=== PATIENT | male | born 1980 | race American Indian/Alaskan Native ===

== ENCOUNTER 2019-11-12 15:31 | Inpatient (IN) | payer OTHER ==
[~2019-11-12] VITALS: Ht 180.3 cm; Wt 98.9 kg
--- OUTSIDE RECORDS SUMMARY | ~2019-11-12 | XMS | Encounter Summary ---
Demographics + + + | Address | [address] [facility] [address] | | | [place] [address] | + + + | Home Phone | | + + + | Preferred Language | Unknown | + + + | Marital Status | | + + + | Alevism Affiliation | Unknown | + + + | Race | Unknown | + + + | Ethnic Group | Unknown | + + + Author + + + | Author | [facility] | | | and [place] | + + + | Organization | [facility] | | | and [place] | + + + | Address | Unknown | + + + | Phone | Unavailable | + + + Support + + + + + | Name | Relationship | Address | Phone | + + + + + | Annie Thomas | ECON | [place] | | | | | [address] | | + + + + + Care Team Providers + +------+ + | Care Sample Hand Name | Role | Phone | + +------+ + | No, Physician | PCP | Unavailable | + +------+ + Reason for Visit + + + | Reason | Comments | + + + | Eye Problem | | + + + Encounter Details +--------+ + + + + | Date | Type | Department | Care Team | Description | +--------+ + + + + | 03/29/ | Emergency | [facility] | Darron Krueger Rober, | Scleral injection | | 2019 | | MEDICAL CENTER | [address] | (Primary Dx); Acute | | | | EMERGENCY CENTER | [place] [address] | conjunctivitis of | | | | [address] | [phone] | both eyes, | | | | [place], [place] | | unspecified acute | | | | [address] | | conjunctivitis type | | | | [phone] | | | +--------+ + + + + Social History + +-------+ +--------+------+ | Tobacco Use | Types | Packs/Day | Years | Date | | | | | Used | | + +-------+ +--------+------+ | Never Smoker | | | | | + +-------+ +--------+------+ + +---+---+---+ | Smokeless Tobacco: | | | | | Never Used | | | | + +---+---+---+ + + +---------+ + | Alcohol Use | Drinks/Week | oz/Week | Comments | + + +---------+ + | Yes | | | occasionally | + + +---------+ + + + + | Sex Assigned at | Date Recorded | | | | + + + | Not on file | | + + + + + + + | Job Start Date | Occupation | Industry | + + + + | Not on file | Not on file | Not on file | + + + + + + + + | Travel History | Travel Start | Travel End | + + + + + + | No recent travel history available. | + + documented as of this encounter Last Filed Vital Signs + + + + + | Vital Sign | Reading | Time Taken | Comments | + + + + + | Blood Pressure | 164/102 | 03/29/2019 9:37 AM | | | | | PDT | | + + + + + | Pulse | 71 | 03/29/2019 9:37 AM | | | | | PDT | | + + + + + | Temperature | 36.6 C (97.8 F) | 03/29/2019 9:37 AM | | | | | PDT | | + + + + + | Respiratory Rate | 18 | 03/29/2019 9:37 AM | | | | | PDT | | + + + + + | Oxygen Saturation | 97% | 03/29/2019 9:37 AM | | | | | PDT | | + + + + + | Inhaled Oxygen | - | - | | | Concentration | | | | + + + + + | Weight | 104 kg (229 lb 4.5 | 03/29/2019 8:24 AM | | | | oz) | PDT | | + + + + + | Height | - | - | | + + + + + | Body Mass Index | - | - | | + + + + + documented in this encounter Discharge Instructions Instructions Darron Krueger MD - 03/29/2019 Preservative free artificial tears 1 to 2 drops each eye every hour until you see the eye s pecialist tomorrow For pain control: Take ibuprofen (Motrin/Advil ) 600 mg plus acetaminophen (Tylenol) 1000 m g both together every 6 hours (take both at the same time) Once the pain is improving, then just take the ibuprofen or acetaminophen alone. 600 mg of Ibuprofen/Motrin/Advil is equal to (3 adult ibuprofen tablets) 200 mg each tablet 1000 mg of acetaminophen/Tylenol is equal to (2 extra strength tablets) 500 mg each tablet AttachmentsThe following attachments cannot be sent through Care Everywhere.Analia Herzog (Tajik)Conjunctivitis, Nonspecific (Tajik)documented in this encounter Medications at Time of Discharge + + + +---------+ + + | Medication | Sig | Dispensed | Refills | Start | End Date | | | | | | Date | | + + + +---------+ + + | dextran | Place 1 drop into | 1 each | 0 | 03/29/20 | | | 70-hypromellose, PF, | both eyes every 2 | | | 19 | | | (TEARS NATURALE | hours as needed for | | | | | | FREE) 0.1-0.3% | Dry Eyes (Eye | | | | | | ophthalmic solution | irritation). | | | | | + + + +---------+ + + documented as of this encounter Plan of Treatment Not on filedocumented as of this encounter Visit Diagnoses + + | Diagnosis | + + | Scleral injection - Primary Redness or discharge of eye | + + | Acute conjunctivitis of both eyes, unspecified acute conjunctivitis type | + + documented in this encounter Administered Medications + +--------+ + +------+------+ | Medication Order | MAR | Action | Dose | Rate | Site | | | Action | Date | | | | + +--------+ + +------+------+ | acetaminophen (TYLENOL) tablet | Given | 03/29/20 | 1,000 mg | | | | 1,000 mg 1,000 mg, Oral, ONCE, | | 19 8:43 | | | | | 03/29/19 at 0825, For 1 dose | | AM PDT | | | | + +--------+ + +------+------+ +---+---+ | | | +---+---+ + + + +------+---+---+ | fluorescein ophthalmic strip 1 | Given by | 03/29/20 | 1 mg | | | | mg 1 mg (1 strip), Both Eyes, | Other | 19 8:48 | | | | | ONCE, Fri03/29/19 at 0855, For 1 | | AM PDT | | | | | dose | | | | | | + + + +------+---+---+ +---+---+ | | | +---+---+ + +-------+ +------+---+---+ | fluorescein ophthalmic strip 2 | Given | 03/29/20 | 2 mg | | | | mg 2 mg (2 strip), Both Eyes, | | 19 8:46 | | | | | ONCE, Fri03/29/19 at 0825, For 1 | | AM PDT | | | | | dose | | | | | | + +-------+ +------+---+---+ +---+---+ | | | +---+---+ + +-------+ +--------+---+---+ | ibuprofen (ADVIL,MOTRIN) tablet | Given | 03/29/20 | 600 mg | | | | 600 mg 600 mg, Oral, EVERY 6 | | 19 8:55 | | | | | HOURS PRN, Pain, Starting Mon | | AM PDT | | | | | 03/29/19 at 0821, Give with food., | | | | | | | | | | | | | + +-------+ +--------+---+---+ +---+---+ | | | +---+---+ + +-------+ +--------+---+---+ | proparacaine (ALCAINE) 0.5% | Given | 03/29/20 | 1 drop | | | | ophthalmic solution 1 drop 1 | | 19 8:46 | | | | | drop, Both Eyes, ONCE, Mon | | AM PDT | | | | | 03/29/19 at 0825, For 1 dose | | | | | | + +-------+ +--------+---+---+ +---+---+ | | | +---+---+ documented in this encounter"
--- OUTSIDE RECORDS SUMMARY | ~2019-11-12 | XMS | Clinical Summary ---
Demographics + + + | Address | [address] [facility] [address] | | | [place] [address] | + + + | Home Phone | | + + + | Preferred Language | Unknown | + + + | Marital Status | | + + + | Mu-Ism Affiliation | Unknown | + + + | Race | Unknown | + + + | Ethnic Group | Unknown | + + + Author + + + | Author | [facility] | | | and [place] | + + + | Organization | [facility] | | | and [place] | + + + | Address | Unknown | + + + | Phone | Unavailable | + + + Support + + + + + | Name | Relationship | Address | Phone | + + + + + | Annie Thomas | ECON | [place] | | | | | [address] | | + + + + + Care Team Providers + +------+ + | Care Geotechnical Laboratory Technician Name | Role | Phone | + +------+ + | No, Physician | PCP | Unavailable | + +------+ + Allergies No Known Allergies Medications + + + +---------+------+------+-------+ | Medication | Sig | Dispensed | Refills | Star | End | Statu | | | | | | t | Date | s | | | | | | Date | | | + + + +---------+------+------+-------+ | dextran | Place 1 drop into | 1 each | 0 | 09/2 | | Activ | | 70-hypromellose, PF, | both eyes every 2 | | | 3/20 | | e | | (TEARS NATURALE | hours as needed for | | | 19 | | | | FREE) 0.1-0.3% | Dry Eyes (Eye | | | | | | | ophthalmic solution | irritation). | | | | | | + + + +---------+------+------+-------+ Active Problems Not on file Social History + +-------+ +--------+------+ | Tobacco [...] recent travel history available. | + + Last Filed Vital Signs + + + [...] | | + + + + + Plan of Treatment + + + + + | Health Maintenance | Due Date | Last Done | Comments | + + + + + | Vaccine: | | | | | Dtap/Tdap/Td (1 - | 2 | | | | Tdap) | | | | + + + + + | Vaccine: Influenza | | | | | (Season Ended) | 0 | | | + + + + + Results Not on filefrom Last 3 Months Advance Directives + + + + + | Type | Date Recorded | Patient | Explanation | | | | Radio Sales Account Executive | | + + + + + | Power of | | | | | Environmental Emergencies Planner | | | | + + + + + | Advance | | | | | Directive | | | | + + + + +"
--- OUTSIDE RECORDS SUMMARY | ~2019-11-12 | XMS | Clinical Summary ---
Demographics + + + | Address | [address] [facility] [address] | | | [place] [address] | + + + | Home Phone | | + + + | Preferred Language | Unknown | + + + | Marital Status | | + + + | Anabaptist Affiliation | Unknown | + + + | Race | Unknown | + + + | Ethnic Group | Unknown | + + + Author + + + | Author | [facility] | | | and [place] | + + + | Organization | [facility] | | | and [place] | + + + | Address | Unknown | + + + | Phone | Unavailable | + + + Support + + + + + | Name | Relationship | Address | Phone | + + + + + | Annie Thomas | ECON | [place] | | | | | [address] | | + + + + + Care Team Providers + +------+ + | Care Station Cleaning Porter Name | Role | Phone | + [...] Patient | Explanation | | | | Credit Officer | | + + + + + | Power of | | | | | Director Camp | | | | + + + + + | Advance | | | | | Directive | | | | + + + + +"
--- OUTSIDE RECORDS SUMMARY | ~2019-11-12 | XMS | Encounter Summary ---
Demographics + + + | Address | [address] [facility] [address] | | | [place] [address] | + + + | Home Phone | | + + + | Preferred Language | Unknown | + + + | Marital Status | | + + + | Buddhism Affiliation | Unknown | + + + | Race | Unknown | + + + | Ethnic Group | Unknown | + + + Author + + + | Author | [facility] | | | and [place] | + + + | Organization | [facility] | | | and [place] | + + + | Address | Unknown | + + + | Phone | Unavailable | + + + Support + + + + + | Name | Relationship | Address | Phone | + + + + + | Annie Thomas | ECON | [place] | | | | | [address] | | + + + + + Care Team Providers + +------+ + | Care Slot Ambassador Name | Role | Phone | + [...] + + | 03/29/ | Emergency | [facility] | Darron Krueger Rober, | Scleral injection | | 2019 | | MEDICAL CENTER | [address] | (Primary Dx); Acute | | | | EMERGENCY CENTER | [place] [address] | conjunctivitis of | | | | [address] | [phone] | both eyes, | | | | [place], [place] | | unspecified acute | | | | [address] | | conjunctivitis type | | | | [phone] | | | +--------+ + + + [...] cannot be sent through Care Everywhere.Analia Herzog (Kazakh)Conjunctivitis, Nonspecific (Kazakh)documented in this encounter Medications at Time of [...]
--- OUTSIDE RECORDS SUMMARY | ~2019-11-12 | XMS | Encounter Summary ---
Demographics + + + | Address | [address] [facility] [address] | | | [place] [address] | + + + | Home Phone | | + + + | Preferred Language | Unknown | + + + | Marital Status | | + + + | Anabaptism Affiliation | Unknown | + + + | Race | Unknown | + + + | Ethnic Group | Unknown | + + + Author + + + | Author | [facility] | | | and [place] | + + + | Organization | [facility] | | | and [place] | + + + | Address | Unknown | + + + | Phone | Unavailable | + + + Support + + + + + | Name | Relationship | Address | Phone | + + + + + | Annie Thomas | ECON | [place] | | | | | [address] | | + + + + + Care Team Providers + +------+ + | Care Staffing Consultant Name | Role | Phone | + [...] + + | 03/29/ | Emergency | [facility] | Darron Krueger Rober, | Scleral injection | | 2019 | | MEDICAL CENTER | [address] | (Primary Dx); Acute | | | | EMERGENCY CENTER | [place] [address] | conjunctivitis of | | | | [address] | [phone] | both eyes, | | | | [place], [place] | | unspecified acute | | | | [address] | | conjunctivitis type | | | | [phone] | | | +--------+ + + + [...] cannot be sent through Care Everywhere.Analia Herzog (Swedish)Conjunctivitis, Nonspecific (Swedish)documented in this encounter Medications at Time of [...]
--- OUTSIDE RECORDS SUMMARY | ~2019-11-12 | XMS | Clinical Summary ---
Demographics + + + | Address | [address] [facility] [address] | | | [place] [address] | + + + | Home Phone | | + + + | Preferred Language | Unknown | + + + | Marital Status | | + + + | Worship Affiliation | Unknown | + + + | Race | Unknown | + + + | Ethnic Group | Unknown | + + + Author + + + | Author | [facility] | | | and [place] | + + + | Organization | [facility] | | | and [place] | + + + | Address | Unknown | + + + | Phone | Unavailable | + + + Support + + + + + | Name | Relationship | Address | Phone | + + + + + | Annie Thomas | ECON | [place] | | | | | [address] | | + + + + + Care Team Providers + +------+ + | Care Hotel Assistant Manager Name | Role | Phone | + [...] Patient | Explanation | | | | Pv Design And Installation Technician | | + + + + + | Power of | | | | | Account Auditor | | | | + + + + + | Advance | | | | | Directive | | | | + + + + +"
[~2019-11-12 15:31] MED LIST: BACTRIM DS TAB1 EACH PO; CEPHALEXIN500 MG PO
--- NOTE | 2019-11-12 21:30 | EKG ---
[facility] [address] [facility] [place], [place] [address] Signed Sinus tachycardia Otherwise normal ECG Confirmed by JANETH GARZA MD ([id number]) on 11/12/2019 9:29:44 PM Electronically Signed By: JANETH GARZA MD 11/12/19 2130 PATIENT NAME: CASPERBRIAN JIMENEZ II Electrocardiogram DATE OF : 80 PHYSICIAN: JANETH GARZA MD REPORT #: [id number] REPORT IS CONFIDENTIAL AND NOT TO BE RELEASED WITHOUT AUTHORIZATION
[2019-11-13] MEDS ORDERED: PREDNISONE10 MG PO (13:15)
== END 2019-11-13 14:47 | disposition home or self-care (01) | DRG 897 ==
LOC: ED 15:31 → CCU 18:56
PROVIDERS: ADMIT Internal Medicine
DX: F19.939 Other psychoactive substance use, unspecified with withdrawal, unspecified (principal); E87.2 Acidosis; R41.82 Altered mental status, unspecified; F10.10 Alcohol abuse, uncomplicated; I10 Essential (primary) hypertension; L23.7 Allergic contact dermatitis due to plants, except food; I95.9 Hypotension, unspecified; T63.791A Toxic effect of contact with other venomous plant, accidental (unintentional), initial encounter
CPT/HCPCS: 36415; 51701; 80048; 80053; 80176; 81001; 82550; 83605; 83735; 84100; 84443; 84484; 85025; 85610; 93005; 93010; 99285-25; C9113; G0480; J0690; J1200; J1720; J2060; J2405; J3411; J7030; U0002

== ENCOUNTER 2020-12-09 05:30 | Emergency (ER) | payer OTHER ==
[~2020-12-09] VITALS: Ht 180.3 cm; Wt 98.9 kg
[~2020-12-09 05:30] MED LIST changes: +PREDNISONE10 MG PO
[2020-12-09] MEDS ORDERED: DICLOFENAC SODI75 MG PO (05:57)
[2020-12-09] MEDS ORDERED: CYCLOBENZAPRINE10 MG PO (05:57)
== END 2020-12-09 06:11 | disposition home or self-care (01) ==
LOC: ED 05:30
DX: M54.2 Cervicalgia (principal)
CPT/HCPCS: 99283

== ENCOUNTER 2021-03-29 12:23 | Emergency (ER) | payer OTHER ==
[~2021-03-29] VITALS: Ht 180.3 cm; Wt 103.4 kg
[~2021-03-29 12:23] MED LIST changes: +CYCLOBENZAPRINE10 MG PO; +DICLOFENAC SODI75 MG PO
[2021-03-29] MEDS ORDERED: SKYRIZI150 MG/1 M (13:57)
== END 2021-03-29 18:06 | disposition home or self-care (01) ==
LOC: ED 12:23
DX: U07.1 COVID-19 (principal); L40.9 Psoriasis, unspecified; Z79.899 Other long term (current) drug therapy
CPT/HCPCS: 96374; 99283-25; J1885; M0243; Q0244

== ENCOUNTER 2021-06-29 06:29 | Emergency (ER) | payer OTHER ==
[~2021-06-29] VITALS: Ht 180.3 cm; Wt 103.4 kg
[~2021-06-29 06:29] MED LIST changes: +SKYRIZI150 MG/1 M
== END 2021-06-29 10:08 | disposition home or self-care (01) ==
LOC: ED 06:29
DX: U07.1 COVID-19 (principal); Z23 Encounter for immunization; I10 Essential (primary) hypertension; Z79.899 Other long term (current) drug therapy
CPT/HCPCS: 99283-25; M0243; Q0244

== ENCOUNTER 2022-03-20 09:22 | Emergency (ER) | payer OTHER ==
[~2022-03-20] VITALS: Ht 180.3 cm; Wt 103.4 kg
== END 2022-03-20 11:00 | disposition home or self-care (01) ==
LOC: ED 09:22
DX: U07.1 COVID-19 (principal); I10 Essential (primary) hypertension
CPT/HCPCS: 96374; 99283-25; A9270

== ENCOUNTER 2024-09-01 08:19 | Emergency (ER) | payer OTHER ==
[~2024-09-01] VITALS: Ht 180.3 cm; Wt 113.4 kg
[2024-09-01] MEDS ORDERED: diphenhydrAMINE HCL 50 MG/ML VIAL IV ONE (08:30)
[2024-09-01] MEDS ORDERED: FAMOTIDINE 20 MG/ 2 ML VIAL IV ONE (08:30)
[2024-09-01] MEDS ORDERED: methylPREDNISolone SOD SUCC 125 MG/2 ML VIAL IV ONE (08:30)
[2024-09-01] MEDS ORDERED: SODIUM CHLORIDE 0.9% 1,000 ML IV PRN (08:30)
[2024-09-01] MEDS ORDERED: PEPCID20 MG PO (10:41)
[2024-09-01] MEDS ORDERED: EPIN0.3P IM (10:41)
[2024-09-01] MEDS ORDERED: PREDNISONE20 MG PO (10:41)
[2024-09-01 10:53] VITALS: BP 180/100
== END 2024-09-01 10:53 | disposition home or self-care (01) ==
LOC: ED 08:19
DX: T78.40XA Allergy, unspecified, initial encounter (principal); I10 Essential (primary) hypertension; X58.XXXA Exposure to other specified factors, initial encounter
CPT/HCPCS: 96374; 96375; 99283-25; J1200; J2919; J7030

== ENCOUNTER 2024-12-09 23:12 | Emergency (ER) | payer OTHER ==
[~2024-12-09] VITALS: Ht 180.3 cm; Wt 109.9 kg
[~2024-12-09 23:12] MED LIST changes: +EPIN0.3P IM; +PEPCID20 MG PO; +PREDNISONE20 MG PO
[2024-12-09] MEDS ORDERED: LOSARTAN-HCTZ1 EAC1 PO (23:23)
[2024-12-09] MEDS ORDERED: LOSARTAN POTASSIUM 50 MG TAB PO ONE (23:30)
[2024-12-09] MEDS ORDERED: hydroCHLOROthiazide 25 MG TAB PO ONE (23:30)
[2024-12-09 23:54] VITALS: BP 176/106
== END 2024-12-09 23:55 | disposition home or self-care (01) ==
LOC: ED 23:12
DX: I10 Essential (primary) hypertension (principal); Z79.899 Other long term (current) drug therapy
CPT/HCPCS: 99283

== ENCOUNTER 2025-05-21 20:09 | Emergency (ER) | payer OTHER | END 2025-05-22 00:08 | disposition home or self-care (01) | LOC: ED 20:09 | DX: T78.2XXA Anaphylactic shock, unspecified, initial encounter (principal); L29.9 Pruritus, unspecified; I10 Essential (primary) hypertension ==